=== PATIENT | male | born 1975 | race Caucasian/White ===

== ENCOUNTER 2019-06-17 21:36 | Emergency (ER) | payer SELFPAY ==
[~2019-06-17] VITALS: Ht 167.6 cm; Wt 86.4 kg
[~2019-06-17 21:36] MED LIST: IBUP-2343 PO
[2019-06-17 22:30] VITALS: BP 134/87
[2019-06-17] MEDS ORDERED: HYDROCODONE/ACETAMINOPHEN 5-325 MG TABLET PO ONE (22:45)
== END 2019-06-17 23:08 | disposition home or self-care (01) ==
LOC: EMS 21:37
DX: K04.7 Periapical abscess without sinus (principal); F17.290 Nicotine dependence, other tobacco product, uncomplicated